=== PATIENT | female | born 1990 | race Caucasian/White ===

== ENCOUNTER 2023-07-09 12:35 | Emergency (ER) | payer BC, MEDICAID, SELFPAY ==
[2023-07-09 13:08] VITALS: BP 151/86; PULSE 93; RESP 16; TEMP 36.7; O2SAT 98; BMI 29.2
--- NOTE | 2023-07-09 13:38 | ED_ITS ---
HPI - Head Injury General: Chief complaint: Head Injury Stated complaint: hit head, head pains Time Seen by Provider: 07/09/23 13:36 Source: patient Mode of arrival: ambulatory Limitations: no limitations History of Present Illness: Patient is a 32-year-old female presents to ED today with a complaint of a headache secondary to trauma yesterday. Patient states she was bending over outside of her car door when her young child accidentally shut the car door- slamming her head in the door. She states she has pain near her right posterior auricular area and left temporal area. She has not noticed any swelling or bruising. No neurologic symptoms. States she has treated with ibuprofen with minimal relief. MD Complaint: head injury Onset (ago): day(s) (yesterday) Place: home Loss of Consciousness: no Location of injury: temporal Severity: severe Radiation: none Other Injuries: none Associated symptoms: Reports no associated symptoms and nausea; Deny confusion, neck pain, vertigo or vomiting Review of Systems Eyes: Reports: photophobia; Denies: change in vision, blurry vision, floaters or seeing flashes GI: Reports: nausea; Denies: vomiting Musc: Denies: neck pain Neuro: Reports: headache(s); Denies: numbness in extremities, weakness in extremities, sensory changes, lack of coordination, difficulty walking, dizziness, vertigo, confusion, behavioral changes, Slurred speech present, difficulty communicating thoughts or seizure- like activity Physical Exam Const: COMMON NORMALS: average body habitus, patient oriented x3, no limitations, healthy appearing, alert and well nourished GENERAL APPEARANCE: cooperative and in distress (appears uncomfortable secondary to headache) HENMT: COMMON NORMALS: normocephalic, atraumatic, hearing grossly normal bilaterally and TM's normal bilaterally HEAD & SCALP: normal to inspection, normocephalic, atraumatic and scalp tenderness (R posterior auricular, L temporal ); no Carballo's sign, no hematoma, no palpable skull fracture and no raccoon eyes FACE & SINUS: normal facial exam TYMPANIC MEMBRANE: TM's normal bilaterally Eye: COMMON NORMALS: Equal, round and reactive pupils present and EOMs intact bilaterally GENERAL EYE: appearance normal, both eyes and all related structu res and normal light reflex PUPIL: Yes Equal, round and reactive pupils present DIRECT OPHTHALMOSCOPY: Yes normal light reflex Neck/C-Spine: COMMON NORMALS: full ROM GENERAL: Yes normal visual inspection CERVICAL SPINE: No Cervical spine tenderness Neuro: CLAIRE COMA SCALE: document GCS findings Sterling coma scale eye opening: Spontaneous Claire coma scale verbal response: Orientated Claire coma scale motor response: Obey commands Sterling coma scale total score: 15 COMMON NORMALS: patient oriented x3, CN's II-XII intact bilaterally, moves all extre mities, no focal motor deficits, no sensory deficits noted and gait normal SENSORIUM/ORIENTATION: Yes alert Course Vital Signs: Vital signs: Vital Signs Temperature 98.1 F 07/09/23 13:08 Pulse Rate 93 07/09/23 13:08 Respiratory Rate 16 07/09/23 13:08 Blood Pressure 151/86 07/09/23 13:08 Pulse Oximetry 98 07/09/23 13:08 Oxygen Delivery Me thod Room Air 07/09/23 13:08 MDM - Head Injury Medcial Decision Making Head CT is negative. Patient is feeling much better after IV medications/fluids given here. She will be allowed discharge with return precautions. Differential Diagnosis Likely closed head injury Medical Records I reviewed the patient's medical records. Lab Data Radiology Impressions Head CT 07/09/23 13:49 IMPRESSION: No acute intracranial abnormality. All radiology interpretation(s) finalized by discharge Discharge Plan Discharge Patient Disposition: Home Clinical Impression: Closed head injury Qualifiers: Encounter type: initial encounter Qualified Code(s): S09.90XA - Unspecified injury of head, initial encounter Condition: Stable Discharge Orders: Discharge ED (Routine); Ordered 07/09/23 Ordered By: Maria Teresa Rod Patient Instructions: Head Injury (DC) Coding Level of Care Code ED Python Java Developer for Madie Marcial
--- NOTE | 2023-07-09 13:49 | CTR_ITS ---
PROCEDURE INFORMATION: Exam: CT Head Without Contrast Exam date and time: 07/09/2023 2:44 PM Age: 32 years old Clinical indication: Pain; Dizziness; Headache; Post-traumatic; Additional info: Trauma TECHNIQUE: Imaging protocol: Computed tomography of the head without contrast. Radiation optimization: All CT scans at this facility use at least one of these dose optimization techniques: automated exposure control; mA and/or kV adjustment per patient size (includes targeted exams where dose is matched to clinical indication); or iterative reconstruction. COMPARISON: No relevant prior studies available. RADIATION DOSE METRICS: Total DLP (mGy-cm): 1013.35 FINDINGS: Brain: No midline shift. Ventricles, cisterns, and sulci are normal. No mass, acute infarct, hemorrhage, or extraaxial fluid collection. 5 mm extra-axial calcified nodule along the inner table of the right frontal bone, presumed meningioma which does not exert mass effect on brain parenchyma. Cerebral ventricles: No ventriculomegaly. Paranasal sinuses: Mild diffuse paranasal sinus mucosal thickening. Mastoid air cells: Visualized mastoid air cells are well aerated. Bones: Unremarkable. No acute fracture. Soft tissues: Unremarkable. CT/CT head wo con* [id number] IMPRESSION: No acute intracranial abnormality.
[2023-07-09] MEDS: dexamethasone 10 mg/mL INJ 8 MG IVP (14:14)
[2023-07-09] MEDS: diphenhydrAMINE 50 mg/mL SDV 1mL 25 MG IVP (14:14)
[2023-07-09] MEDS: sodium chloride 0.9% 1,000 ML 999 ML IV (14:14)
[2023-07-09] MEDS: ondansetron 2 mg/ML SDV 2 mL 4 MG IVP (14:15)
[2023-07-09] MEDS: ketorolac 60 mg/2 mL INJ 30 MG IVP (14:15)
[2023-07-09 15:38] VITALS: BP 113/76; PULSE 82; O2SAT 100
== END 2023-07-09 15:39 | disposition home or self-care (01) ==
PROVIDERS: Emergency Provider Physician Assistant
DX: S09.8XXA Other specified injuries of head, initial encounter (principal); W23.2XXA Caught, crushed, jammed or pinched between a moving and stationary object, initial encounter
CPT/HCPCS: 70450; 96374; 96375; 99285; J1100; J1200; J1885; J2405; J7030